=== PATIENT | female | born 1990 | race Caucasian/White ===

== ENCOUNTER 2018-11-19 11:17 | Inpatient (IN) | payer BC ==
[2018-11-19] MEDS ORDERED: OXYTOCIN 30 UNITS/LR 500 ML IV ×2 (12:00→19:00)
[2018-11-19] MEDS ORDERED: BUTORPHANOL 1 MG INJ IV (12:00)
[2018-11-19] MEDS ORDERED: MISOPROSTOL 200 MCG TAB PR ×2 (12:00→19:00)
[2018-11-19] MEDS ORDERED: LIDOCAINE 1% (MPF) 30 ML INJ INJ (12:00)
[2018-11-19] MEDS ORDERED: IBUPROFEN 600 MG TAB PO (12:00)
[2018-11-19] MEDS ORDERED: CARBOPROST 250 MCG INJ IM ×2 (12:00→19:00)
[2018-11-19] MEDS ORDERED: METHYLERGONOVINE 0.2 MG INJ IM (12:00)
[2018-11-19] MEDS: LACTATED RINGER'S 1,000 ML IV ×3 (12:33→15:11)
[2018-11-19] MEDS: AMPICILLIN 2 GM/NS (PMX) 100 ML IV (12:33)
[2018-11-19 12:38] LABS: ADD MAN DIFF? NO
[2018-11-19] MEDS: BUTORPHANOL 2 MG INJ IV (12:39)
[2018-11-19 12:43] LABS: WHITE BLOOD COUNT 9.7 10^3/ul (4.8-10.8)
[2018-11-19 12:43] LABS: BASOPHILS % 0.2 % (0.0-2.0); EOSINOPHILS # 0.1 10^3/ul (0.0-0.5); EOSINOPHILS % 0.7 % (0.0-7.0); HEMATOCRIT 38.3 % (37.0-47.0); LYMPHOCYTES # 1.8 10^3/ul (0.8-2.9); LYMPHOCYTES % 18.4 % (15.0-51.0); MEAN CORPUSCULAR HEMOGLOBIN 30.6 pg (29.0-33.0); MEAN CORPUSCULAR HGB CONC 33.9 g/dl (32.0-37.0); MEAN CORPUSCULAR VOLUME 90.1 fl (82.0-101.0); MEAN PLATELET VOLUME 10.5 fl (7.4-10.4); MONOCYTE # 0.7 10^3/ul (0.3-0.9); NEUTROPHIL # 7.1 10^3/ul (1.6-7.5); NEUTROPHILS % 73.3 % (39.0-77.0); PLATELET COUNT 230 10^3/UL (140-415); RED BLOOD COUNT 4.25 10^6/ul (4.20-5.40); RED CELL DISTRIBUTION WIDTH 14.2 % (11.5-14.5)
[2018-11-19 13:19] LABS: INR 0.83; PROTIME 11.5 Sec (11.9-14.9); PT RATIO 0.9
[2018-11-19 13:20] LABS: PARTIAL THROMBOPLASTIN TIME 26.4 Sec (23.0-35.0)
[2018-11-19 13:35] LABS: HEPATITIS B SURFACE ANTIGEN NEGATIVE (NEGATIVE)
[2018-11-19 13:45] LABS: HIV 1&2 ANTIBODY NEGATIVE (NEGATIVE)
[2018-11-19] MEDS ORDERED: FENTAnyl 2MCG/ML-ROPIV 0.2% 100 ML (14:15)
[2018-11-19] MEDS ORDERED: FENTAnyl 2MCG/ML-ROPIV 0.2% 100 ML BAG EPI (14:30)
[2018-11-19] MEDS ORDERED: NALOXONE (0.4 MG/ML) INJ IV (14:30)
[2018-11-19 15:41] LABS: RAPID PLASMA REAGIN NONREACTIVE (NR)
[2018-11-19] MEDS ORDERED: AMPICILLIN 1 GM/NS (PMX) 50 ML IV (16:00)
[2018-11-19] MEDS: OXYTOCIN 30 UNITS/LR 500 ML IV ×2 (18:24→19:02)
[2018-11-19] MEDS ORDERED: HYDROCODONE/APAP (5/325) TAB PO ×2 (19:00)
[2018-11-19] MEDS ORDERED: DIPHENHYDRAMINE 25 MG CAP PO (19:00)
[2018-11-19] MEDS ORDERED: DIBUCAINE 1% 30 GM OINT TOP (19:00)
[2018-11-19] MEDS ORDERED: DIPHENHYDRAMINE 50 MG INJ IV (19:00)
[2018-11-19] MEDS ORDERED: NA PHOSPHATE/BIPHOS 133 ML ENEMA PR (19:00)
[2018-11-19] MEDS ORDERED: ONDANSETRON 4 MG INJ IV (19:00)
[2018-11-19] MEDS ORDERED: SENNA/DOCUSATE NA (8.6MG/50MG) TAB PO (19:00)
[2018-11-19] MEDS ORDERED: MAGNESIUM HYDROXIDE 30ML CUP PO (19:00)
[2018-11-19] MEDS ORDERED: ONDANSETRON 4 MG TAB PO (19:00)
[2018-11-19] MEDS: SENNA/DOCUSATE NA (8.6MG/50MG) TAB PO (21:41)
[2018-11-19] MEDS: LACTATED RINGER'S 1,000 ML IV* (23:04)
[2018-11-20] MEDS: IBUPROFEN 600 MG TAB PO ×4 (00:41→18:22)
[2018-11-20 06:19] LABS: ADD MAN DIFF? NO
[2018-11-20 06:27] LABS: BASOPHILS % 0.2 % (0.0-2.0); EOSINOPHILS # 0.1 10^3/ul (0.0-0.5); EOSINOPHILS % 0.4 % (0.0-7.0); HEMATOCRIT 33.8 % (37.0-47.0); HEMOGLOBIN 11.3 g/dl (12.0-16.0); LYMPHOCYTES # 2.5 10^3/ul (0.8-2.9); LYMPHOCYTES % 15.4 % (15.0-51.0); MEAN CORPUSCULAR HEMOGLOBIN 30.5 pg (29.0-33.0); MEAN CORPUSCULAR HGB CONC 33.4 g/dl (32.0-37.0); MEAN CORPUSCULAR VOLUME 91.1 fl (82.0-101.0); MEAN PLATELET VOLUME 10.9 fl (7.4-10.4); MONOCYTE # 1.2 10^3/ul (0.3-0.9); MONOCYTES % 7.5 % (0.0-11.0); NEUTROPHIL # 12.2 10^3/ul (1.6-7.5); PLATELET COUNT 207 10^3/UL (140-415); RED BLOOD COUNT 3.71 10^6/ul (4.20-5.40)
[2018-11-20] MEDS: BENZOCAINE 20% 56 ML SPRAY TOP (09:45)
[2018-11-20] MEDS: WITCH HAZEL/GLYCERIN PAD PR (09:46)
[2018-11-20] MEDS: SENNA/DOCUSATE NA (8.6MG/50MG) TAB PO ×2 (09:46→20:55)
[2018-11-21] MEDS: IBUPROFEN 600 MG TAB PO ×3 (00:14→12:51)
[2018-11-21] MEDS: MEASLES,MUMPS,RUBELLA VACCINE INJ SC* (09:00)
[2018-11-21] MEDS: VARICELLA VACCINE LIVE/PF 1,350 UNIT/0.5 ML ML SC* (09:00)
[2018-11-21] MEDS: DIPHTH/TET/ACEL PERTUSS (ADULT) 0.5 ML VIAL IM* (09:00)
[2018-11-21] MEDS: LANOLIN HPA 1 PKT TOP (09:12)
[2018-11-21] MEDS: SENNA/DOCUSATE NA (8.6MG/50MG) TAB PO (09:12)
[2018-11-22 11:11] LABS: RUBELLA ANTIBODY - IGM <20.00 AU/mL
== END 2018-11-21 14:18 | disposition home or self-care (01) | DRG 807 ==
LOC: OBT 11:17 → L-D 11:18 → OBT 11:30 → L-D 11:30 → PP1 20:16
PROVIDERS: Specialist
PROC: 10E0XZZ Delivery of Products of Conception, External Approach (ICD-10-PCS; principal; 2018-11-19)
PROC: 0HQ9XZZ Repair Perineum Skin, External Approach (ICD-10-PCS; 2018-11-19)
DX: O70.0 First degree perineal laceration during delivery (principal); Z37.0 Single live birth; Z3A.38 38 weeks gestation of pregnancy
CPT/HCPCS: 62319; 76815; 85025; 85610; 85730; 86592; 86703; 86762; 86850; 86900; 86901; 87340

== ENCOUNTER 2018-12-25 15:02 | Emergency (ER) | payer BC | END 2018-12-25 16:29 | disposition home or self-care (01) | LOC: FTE 15:02 | DX: H57.89 Other specified disorders of eye and adnexa (principal) | CPT/HCPCS: 99283 ==